=== PATIENT | female | born 1965 | race Caucasian/White ===

== ENCOUNTER 2019-03-29 05:00 | Inpatient (IN) ==
[2019-03-23 11:56] LABS: Appearance,Urine CLEAR; Bilirubin,Urine NEG (NEG); Color,Urine YELLOW; Culture Indicated,Urine NO; Glucose,Urine (UA) NEGATIVE (NEG); Ketones,Urine NEG (NEG); Leukocyte Esterase,Urine NEG /uL (NEG); Nitrate,Urine NEG (NEG); Protein,Urine NEG (NEG); Specific Gravity,Urine 1.019 (1.000-1.035); Urine Blood NEG mg/dL (<0.03); Urobilinogen,Urine NEG (NEG)
[2019-03-23 12:05] LABS: Basophils # (Auto) 0 K/mcL (0.0-0.3); Basophils % (Auto) 0.4 % (0.0-2.0); Eosinophils # (Auto) 0.1 K/mcL (0.0-0.7); Eosinophils % (Auto) 2.6 % (0.0-7.0); Granulocytes % (Auto) 56.4 % (38.0-78.0); Hematocrit 41.3 % (36.0-48.0); Hemoglobin 13.7 g/dL (12.0-15.0); Lymphocytes # (Auto) 1.6 K/mcL (1.5-4.8); Lymphocytes % (Auto) 31.8 % (15.5-49.0); Mean Cell Volume 91.5 fL (80.0-100.0); Mean Corpuscular HGB Conc 33.1 g/dL (31.0-36.0); Mean Platelet Volume 9.1 fL (7.4-10.4); Monocytes # (Auto) 0.4 K/mcL (0.1-0.9); Monocytes % (Auto) 8.8 % (1.0-12.0); Platelet Count 169 K/mcL (140-440); RBC 4.52 M/mcL (4.00-5.20); Red Cell Distribution Width 14.1 % (11.5-14.5)
[2019-03-23 12:20] LABS: Blood Urea Nitrogen 23 mg/dl (6-20); Calcium 8.9 mg/dl (8.6-10.4); Carbon Dioxide 26 mmol/L (22-30); Chloride 104 mmol/L (96-108); Glomerular Filtration Rate 82; Glucose 85 mg/dL (70-105); Potassium 4.6 mmol/L (3.3-5.1); Sodium 142 mmol/L (133-145)
[~2019-03-29 05:00] MED LIST: IPRATROPIUM/ALBUTEROL 3 ML AMPUL.NEB NEB PRN; SCOPOLAMINE 1 PATCH PATCH TOPICAL PRN
[2019-03-29] MEDS ORDERED: ceFAZolin 2 GM in DEXTROSE 5% IN WATER 50 ML IV SCH (06:00)
[2019-03-29] MEDS ORDERED: oxyCODONE 10 MG TAB.ER.12H PO SCH (06:00)
[2019-03-29] MEDS ORDERED: ACETAMINOPHEN 500 MG TABLET PO SCH (06:00)
[2019-03-29] MEDS ORDERED: PREGABALIN 75 MG CAPSULE PO SCH (06:00)
[2019-03-29] MEDS ORDERED: 0.9 % SODIUM CHLORIDE 9 ML, KETOROLAC 30 MG, ROPIVACAINE HCL/PF 49.5 ML, EPINEPHrine 0.... IJ SCH (06:00)
[2019-03-29] MEDS ORDERED: CELECOXIB 200 MG CAPSULE PO SCH (06:00)
[2019-03-29] MEDS ORDERED: MIDAZOLAM 5 MG/5 ML VIAL IV ONE (07:40)
[2019-03-29] MEDS ORDERED: TRANEXAMIC ACID 1,000 MG/10 ML VIAL IV ONE (07:40)
[2019-03-29] MEDS ORDERED: ONDANSETRON 4 MG/2 ML VIAL IV ONE (07:40)
[2019-03-29] MEDS ORDERED: ROPIVACAINE HCL/PF 20 ML VIAL IJ ONE (07:40)
[2019-03-29] MEDS ORDERED: HYDROmorphone 2 MG/ML VIAL IV ONE (07:40)
[2019-03-29] MEDS ORDERED: GLYCOPYRROLATE 0.2 MG/ML VIAL IV ONE (07:40)
[2019-03-29] MEDS ORDERED: LIDOCAINE HCL/PF 100 MG/5 ML SYRINGE IV ONE (07:40)
[2019-03-29] MEDS ORDERED: fentaNYL 100 MCG/2 ML VIAL IV ONE (07:40)
[2019-03-29] MEDS ORDERED: PROPOFOL 200 MG/20 ML VIAL IV ONE (07:40)
[2019-03-29] MEDS ORDERED: DEXAMETHASONE 10 MG/ML VIAL IV ONE (07:40)
[2019-03-29] MEDS ORDERED: GENTAMICIN SULFATE 800 MG/20 ML VIAL IR ONE (08:11)
[2019-03-29] MEDS ORDERED: PROMETHAZINE 25 MG/ML VIAL IV PRN (08:43)
[2019-03-29] MEDS ORDERED: ATROPINE SULFATE 0.4 MG/ML VIAL IV PRN (08:43)
[2019-03-29] MEDS ORDERED: ONDANSETRON 4 MG/2 ML VIAL IV PRN ×2 (08:43→09:37)
[2019-03-29] MEDS ORDERED: IPRATROPIUM/ALBUTEROL 3 ML AMPUL.NEB NEB PRN (08:43)
[2019-03-29] MEDS ORDERED: METOPROLOL TARTRATE 5 MG/5 ML VIAL IV PRN (08:43)
[2019-03-29] MEDS ORDERED: HYDROmorphone 2 MG/ML VIAL IV PRN (08:43)
[2019-03-29] MEDS ORDERED: MEPERIDINE 25 MG/ML SYRINGE IV PRN (08:43)
[2019-03-29] MEDS ORDERED: METHOCARBAMOL 1,000 MG/10 ML VIAL IV PRN (08:43)
[2019-03-29] MEDS ORDERED: NALOXONE HCL 0.4 MG/ML VIAL IV PRN (08:43)
[2019-03-29] MEDS ORDERED: diphenhydrAMINE 50 MG/ML VIAL IV PRN (08:43)
[2019-03-29] MEDS ORDERED: ePHEDrine 50 MG/ML AMPUL IV PRN (08:43)
[2019-03-29] MEDS ORDERED: FLUMAZENIL 0.1 MG/ML ML IV PRN (08:43)
[2019-03-29] MEDS ORDERED: LACTATED RINGERS 1,000 ML IV SCH (08:45)
[2019-03-29] MEDS ORDERED: MAGNESIUM HYDROXIDE 30 ML ORAL.SUSP PO PRN (09:37)
[2019-03-29] MEDS ORDERED: FLEETS ADULT ENEMA PR PRN (09:37)
[2019-03-29] MEDS ORDERED: BISACODYL 10 MG SUPP.RECT PR PRN (09:37)
[2019-03-29] MEDS ORDERED: ACETAMINOPHEN 325 MG TABLET PO PRN (09:37)
[2019-03-29] MEDS ORDERED: BENZOCAINE/MENTHOL 1 LOZENGE PO PRN (09:37)
[2019-03-29] MEDS ORDERED: POLYETHYLENE GLYCOL 3350 17 GM PACKET PO PRN (09:37)
[2019-03-29] MEDS ORDERED: TRANEXAMIC ACID 1,000 MG/10 ML VIAL IV SCH (09:37)
--- NOTE | 2019-03-29 09:37 | Brief Operative Note ---
Date of procedure: 03/29/19 Pre-op diagnosis: Right knee djd severe Post-op diagnosis: same Procedure: Right TKA with melissa robot Grafts/Implants: Yes Anesthesia: GETA Complications Description: 03/29/19 09:36 none Surgeon: Francis Ayala Customer Success Manager: Myron Luque Estimated blood loss (cc): 100 Tourniquet Time (Minutes): 68 Specimens Removed/Pathology: none sent Condition: stable Disposition: PACU
--- NOTE | 2019-03-29 10:15 | Operative Note ---
DATE OF OPERATION: 03/29/2019 PREOPERATIVE DIAGNOSIS: Right knee degenerative arthritis with severe varus malalignment and flexion contracture of 8 degrees. POSTOPERATIVE DIAGNOSIS: Right knee degenerative arthritis with severe varus malalignment and flexion of contracture of 8 degrees. PROCEDURE: Right robotic total knee arthroplasty. SURGEON: Francis Ayala MD YOUTUBER: Myron Luque PA-C. The PA's assistance was required for the safe and efficient completion of the entire case. This provider's expertise and technical skill were required throughout the case. The PA assisted with preoperative coordination, intraoperative retraction, wound closure, dressing and splint application, as well as postoperative documentation and care coordination. ANESTHESIA: General LMA anesthesia. COMPLICATIONS: None. TOTAL TOURNIQUET TIME: 68 minutes. IMPLANTS PLACED: Per nurse's note. They were all [place] components with a 10 mm poly deep dish with a 32 mm patellar button. DESCRIPTION OF PROCEDURE: The patient was brought to the operating room and put to sleep with general LMA anesthesia. Once asleep, the patient had the right knee sterilely prepped and draped in the usual sterile fashion. A timeout was performed confirming the operative site, and a midline incision was then made, a mid vastus approach performed and we identified severe arthritis with varus malalignment and contracture. Pins above and below the knee were placed for the arrays. We registered the center of hip rotation. Intra-articular pins were placed. We registered the medial and lateral malleoli, registered the pins and registered 30 points on the femur and the tibia. We then balanced the knee with varus valgus stresses at both 90 degrees and 15 degrees of flexion. Once we perfectly balanced the knee by adjusting the implant, alignment and soft tissue releases I then proceeded with using the robot. The robot was brought in and made the bony cuts as planned. We removed these bony fragments, removed the remnants of the meniscus, preserved the posterior cruciate ligament and removed osteophytes as well. We trialed the components. They were tapped into place. We first trialed the 9 where we still had 4 degrees of flexion contracture. We released soft tissues medially and that allowed us to gain full extension and we went up to a size 10 polyethylene. This balanced the knee very well and brought the knee back to 3 degrees of varus and 1 or 2 degrees of extension. This patient tolerated this well. We then implanted the above-mentioned implants; they were cemented into place. Excess cement removed. Posterior spurs were removed and then we placed a 10 mm polyethylene and a 32 mm patellar button was used to rematch her anatomy. We irrigated thoroughly and deflated the tourniquet at 68 minutes and then Stratafix sutures were used to close the capsule x2. The skin was closed with Stratafix and adhesive glue. The patient tolerated this well and a sterile bandage was applied. RBH:larisa Job ID: [id number] Doc ID: [id number] Francis Ayala MD
[2019-03-29] MEDS: fentaNYL 100 MCG/2 ML VIAL IV PRN ×2 (10:30→10:33)
--- NOTE | 2019-03-29 10:44 | XRay Report ---
CLINICAL INFORMATION: Post-Op Total Knee COMPARISON: None. FINDINGS: Total knee prostheses is anatomically aligned. No osseous abnormality. Periarticular gas and soft tissue are seen as expected. IMPRESSION: Negative Interpreted and Authenticated by: Domenico Smyth 03/29/19
[2019-03-29] MEDS: 0.45 % SODIUM CHLORIDE 1,000 ML IV SCH ×2 (10:56→20:46)
[2019-03-29] MEDS: HYDROmorphone 2 MG/ML VIAL IV PRN ×3 (11:14→19:46)
[2019-03-29] MEDS: KETOROLAC 15 MG/ML VIAL IV SCH ×2 (11:55→18:06)
[2019-03-29] MEDS: HYDROcodone/APAP 10/325MG TABLET PO PRN ×3 (12:21→20:42)
[2019-03-29] MEDS: 0.9 % SODIUM CHLORIDE 10 ML SYRINGE IV SCH ×2 (14:44→23:01)
[2019-03-29] MEDS: ceFAZolin 1 GM VIAL IV SCH (16:04)
[2019-03-29] MEDS: ASPIRIN 325 MG ENTERIC COATED TABLET PO SCH (20:43)
[2019-03-29] MEDS: DOCUSATE SODIUM 100 MG CAPSULE PO SCH (20:43)
[2019-03-29] MEDS ORDERED: SENNOSIDES 1 TABLET PO SCH (21:00)
[2019-03-29] MEDS ORDERED: TEMAZEPAM 15 MG CAPSULE PO PRN (21:00)
[2019-03-29] MEDS ORDERED: OMEPRAZOLE 20 MG CAPSULE PO SCH (21:00)
[2019-03-29] MEDS ORDERED: traZODone HCL 50 MG TABLET PO SCH (21:00)
[2019-03-30] MEDS: HYDROcodone/APAP 10/325MG TABLET PO PRN ×3 (00:35→09:40)
[2019-03-30] MEDS: ceFAZolin 1 GM VIAL IV SCH (00:44)
[2019-03-30] MEDS: KETOROLAC 15 MG/ML VIAL IV SCH ×2 (00:44→05:18)
[2019-03-30] MEDS: HYDROmorphone 2 MG/ML VIAL IV PRN (03:24)
[2019-03-30] MEDS: 0.9 % SODIUM CHLORIDE 10 ML SYRINGE IV SCH (05:49)
[2019-03-30] MEDS: 0.45 % SODIUM CHLORIDE 1,000 ML IV SCH (06:27)
--- NOTE | 2019-03-30 07:38 | Orthopedic Progress Note ---
Subjective Patient information: Note initiated : 03/30/19 at 7:37 am Service Date, if different from initiated Date: [] Patient: Noy Mgcuire 54 y/o F admitted on 03/29/19 for Right Robotic Total Knee Arthroplasty. Chief Complaint: [Pt is stable this morning on post operative day 1 without any significant concerns or complaints. Patients vital signs have remained stable. Patients dressing is dry and is grossly intact from a neurovascular and motor standpoint. Patients 10 point ROS is otherwise negative. ] Objective Vital signs: Vital Signs Temp Pulse Resp BP BP Pulse Ox 03/30/19 06:28 97.9 F 68 16 108/61 96 03/30/19 05:00 96 03/30/19 03:44 97.9 F 77 16 118/69 95 03/30/19 00:59 95 03/30/19 00:52 98.3 F 84 16 112/70 95 03/29/19 21:00 97 03/29/19 19:29 98 F 81 16 102/63 90 03/29/19 19:23 94 03/29/19 15:10 97.6 F 73 17 112/68 96 03/29/19 13:00 96 03/29/19 11:51 72 111/70 100 03/29/19 11:36 70 115/73 100 03/29/19 11:21 75 120/71 91 03/29/19 11:06 67 125/70 98 03/29/19 10:51 79 134/82 95 03/29/19 10:35 96.9 F L 74 14 145/89 100 03/29/19 10:20 97.5 F 75 13 147/78 100 03/29/19 10:05 97.3 F 91 H 15 116/93 98 03/29/19 10:00 85 15 139/79 100 03/29/19 09:55 76 11 L 135/77 100 03/29/19 09:50 97.5 F 76 10 L 136/70 95 Intake and Output 03/29/19 03/30/19 03/30/19 21:59 05:59 13:59 Intake Total 2583 Output Total 651 1100 Balance 1932 -1100 Intake: IV 983 Sodium Chloride 0.45% 1,000 ml 983 @ 100 mls/hr IV .Q10H ELADIO Rx#: [id number] Oral 1600 Output: Void Amount 650 1100 # of times incontinent of urine 1 Other: Meal Dinner Percent of Meal Consumed 100% Urine Appearance Clear Clear Urine Color Bright Yellow Bright Yellow Urine Odor Normal Weight 248 lb Intake & Output: Intake & Output 03/29/19 03/30/19 03/30/19 21:59 05:59 13:59 Intake Total 2583 Output Total 651 1100 Balance 1932 -1100 Weight 248 lb Intake: IV 983 Sodium Chloride 0.45% 1,000 ml 983 @ 100 mls/hr IV .Q10H ELADIO Rx#: [id number] Oral 1600 Output: Void Amount 650 1100 # of times incontinent of urine 1 Other: Meal Dinner Percent of Meal Consumed 100% Urine Appearance Clear Clear Urine Color Bright Yellow Bright Yellow Urine Odor Normal Incision: Yes healing Incision clean and dry: Yes Dressing: Yes clean, Yes dry Weight bearing status: full Neurological exam IM: Yes motor sensory intact, Yes neurovascular intact Extremities exam IM: Yes Foot pink and warm, Yes neurovascular intact - Labs CBC & BMP: 03/30/19 04:00 03/23/19 09:47 Labs: 03/30/19 03/23/19 04:00 09:47 Hgb 13.7 Hct 33.2 L 41.3 Assessment and Plan (1) Hx of total knee arthroplasty The patient has been educated regarding dressing care, Physical Therapy recommendations, home exercises, restrictions, and follow up appointments. The patient has had all necessary DME prescribed. The patient has remained relatively stable during their hospital course. Leave Dermabond patch intact until followup Status: Acute
--- NOTE | 2019-03-30 07:41 | Discharge Summary ---
Ortho Discharge - TKA - Patient Instructions Diet: Regular Diet Activity: activity as tolerated, weight bearing as tolerated Total Knee Protocol: For Total Knee: Start ROM ANNIA with stationary bike or rocking chair. Work on gaining full extension of knee. Posterior dislocation precautions provided. Hip abductor strengthening and gait training instructions provided. Apply Cryocuff as instructed. Dressing Care: May shower in 2 days - Problem Maintenance (1) Hx of total knee arthroplasty Status: Acute - Follow Up Plan Follow Up Appointments: Myron Luque PA-C [Physician Photostat Operator] - 04/20/19 10:10 am Disposition: Home, Self-Care Prognosis: Good Rehab Potential: Good I certify that the patient requires SNF services: No Overall status at discharge: patient is progressing back to baseline - Orders For Discharge Prescriptions: Aspirin [Ecotrin] 325 mg PO BID #60 tab.ec Docusate Sodium [Colace] 100 mg PO BID #60 capsule HYDROcodone/APAP 10/325MG [[place] 10-325Mg] 1 - 2 tab PO Q4HP PRN #75 tablet PRN Reason: Pain Level 3-6
[2019-03-30] MEDS ORDERED: FERROUS SULFATE 325 MG TABLET PO SCH (08:00)
[2019-03-30] MEDS: DOCUSATE SODIUM 100 MG CAPSULE PO SCH (08:03)
[2019-03-30] MEDS: ASPIRIN 325 MG ENTERIC COATED TABLET PO SCH (08:03)
[2019-03-30] MEDS ORDERED: VITAMIN D3 1,000 UNIT TABLET PO SCH (09:00)
[2019-03-30] MEDS ORDERED: FLUoxetine HCL 20 MG CAPSULE PO SCH (09:00)
[2019-03-30] MEDS ORDERED: ASCORBIC ACID 500 MG TABLET PO SCH (09:00)
[2019-03-30] MEDS ORDERED: MELOXICAM 7.5 MG TABLET PO SCH (09:00)
[2019-03-30] MEDS ORDERED: lamoTRIgine 25 MG TABLET PO SCH (09:00)
== END 2019-03-30 10:30 | disposition home or self-care (01) | DRG 470 ==
LOC: MEDSUR 05:00
PROVIDERS: ADMIT Orthopaedic Surgery; ATTEND Orthopaedic Surgery

== ENCOUNTER 2019-09-06 04:50 | Inpatient (IN) ==
[2019-08-31 13:43] LABS: Appearance,Urine CLEAR; Bilirubin,Urine NEG (NEG); Color,Urine YELLOW; Culture Indicated,Urine NO; Glucose,Urine (UA) NEGATIVE (NEG); Ketones,Urine NEG (NEG); Leukocyte Esterase,Urine NEG /uL (NEG); Nitrate,Urine NEG (NEG); Protein,Urine NEG (NEG); Specific Gravity,Urine 1.011 (1.000-1.035); Urine Blood NEG mg/dL (<0.03); Urobilinogen,Urine NEG (NEG)
[2019-08-31 14:59] LABS: Basophils # (Auto) 0 K/mcL (0.0-0.3); Basophils % (Auto) 0.4 % (0.0-2.0); Eosinophils # (Auto) 0.1 K/mcL (0.0-0.7); Eosinophils % (Auto) 1.3 % (0.0-7.0); Granulocytes % (Auto) 59.9 % (38.0-78.0); Hematocrit 43.1 % (36.0-48.0); Hemoglobin 14.2 g/dL (12.0-15.0); Lymphocytes # (Auto) 2.1 K/mcL (1.5-4.8); Lymphocytes % (Auto) 31.8 % (15.5-49.0); Mean Cell Volume 89.1 fL (80.0-100.0); Mean Platelet Volume 8.6 fL (7.4-10.4); Monocytes # (Auto) 0.4 K/mcL (0.1-0.9); Monocytes % (Auto) 6.6 % (1.0-12.0); Platelet Count 199 K/mcL (140-440); RBC 4.84 M/mcL (4.00-5.20); Red Cell Distribution Width 13.4 % (11.5-14.5); WBC 6.4 K/mcL (4.5-11.0)
[2019-08-31 15:56] LABS: Blood Urea Nitrogen 12 mg/dl (6-20); Calcium 9.8 mg/dl (8.6-10.4); Carbon Dioxide 25 mmol/L (22-30); Chloride 102 mmol/L (96-108); Glomerular Filtration Rate 82; Glucose 92 mg/dL (70-105)
[2019-09-06] MEDS ORDERED: IPRATROPIUM/ALBUTEROL 3 ML AMPUL.NEB NEB PRN ×2 (05:30→08:44)
[2019-09-06] MEDS ORDERED: SCOPOLAMINE 1 PATCH PATCH TOPICAL PRN (05:30)
[2019-09-06] MEDS ORDERED: CELECOXIB 200 MG CAPSULE PO SCH (06:00)
[2019-09-06] MEDS ORDERED: 0.9 % SODIUM CHLORIDE 9 ML, KETOROLAC 30 MG, ROPIVACAINE HCL/PF 49.5 ML, EPINEPHrine 0.... IJ SCH (06:00)
[2019-09-06] MEDS ORDERED: PREGABALIN 75 MG CAPSULE PO SCH (06:00)
[2019-09-06] MEDS ORDERED: ceFAZolin 2 GM in DEXTROSE 5% IN WATER 50 ML IV SCH (06:00)
[2019-09-06] MEDS ORDERED: oxyCODONE 10 MG TAB.ER.12H PO SCH (06:00)
[2019-09-06] MEDS ORDERED: ACETAMINOPHEN 500 MG TABLET PO SCH (06:00)
[2019-09-06] MEDS ORDERED: GENTAMICIN SULFATE 800 MG/20 ML VIAL IR ONE (07:01)
[2019-09-06] MEDS ORDERED: fentaNYL 100 MCG/2 ML VIAL IV ONE (07:35)
[2019-09-06] MEDS ORDERED: ROPIVACAINE HCL/PF 20 ML VIAL IJ ONE (07:35)
[2019-09-06] MEDS ORDERED: TRANEXAMIC ACID 1,000 MG/10 ML VIAL IV ONE (07:35)
[2019-09-06] MEDS ORDERED: LIDOCAINE HCL/PF 100 MG/5 ML SYRINGE IV ONE (07:35)
[2019-09-06] MEDS ORDERED: GLYCOPYRROLATE 0.2 MG/ML VIAL IV ONE (07:35)
[2019-09-06] MEDS ORDERED: ONDANSETRON 4 MG/2 ML VIAL IV ONE (07:35)
[2019-09-06] MEDS ORDERED: DEXAMETHASONE 10 MG/ML VIAL IV ONE (07:35)
[2019-09-06] MEDS ORDERED: PROPOFOL 200 MG/20 ML VIAL IV ONE (07:35)
[2019-09-06] MEDS ORDERED: KETAMINE 100 MG/ML ML IV ONE (07:35)
[2019-09-06] MEDS ORDERED: METHOCARBAMOL 1,000 MG/10 ML VIAL IV PRN (08:44)
[2019-09-06] MEDS ORDERED: KETOROLAC 15 MG/ML VIAL IV PRN (08:44)
[2019-09-06] MEDS ORDERED: METOPROLOL TARTRATE 5 MG/5 ML VIAL IV PRN (08:44)
[2019-09-06] MEDS ORDERED: PROMETHAZINE 25 MG/ML VIAL IV PRN (08:44)
[2019-09-06] MEDS ORDERED: FLUMAZENIL 0.1 MG/ML ML IV PRN (08:44)
[2019-09-06] MEDS ORDERED: diphenhydrAMINE 50 MG/ML VIAL IV PRN (08:44)
[2019-09-06] MEDS ORDERED: ePHEDrine 50 MG/ML AMPUL IV PRN (08:44)
[2019-09-06] MEDS ORDERED: ATROPINE SULFATE 0.4 MG/ML VIAL IV PRN (08:44)
[2019-09-06] MEDS ORDERED: ONDANSETRON 4 MG/2 ML VIAL IV PRN ×2 (08:44→09:14)
[2019-09-06] MEDS ORDERED: NALOXONE HCL 0.4 MG/ML VIAL IV PRN (08:44)
[2019-09-06] MEDS ORDERED: MEPERIDINE 25 MG/ML SYRINGE IV PRN (08:44)
[2019-09-06] MEDS ORDERED: fentaNYL 100 MCG/2 ML VIAL IV PRN (08:44)
[2019-09-06] MEDS ORDERED: LACTATED RINGERS 1,000 ML IV SCH (08:45)
[2019-09-06] MEDS ORDERED: POLYETHYLENE GLYCOL 3350 17 GM PACKET PO PRN (09:14)
[2019-09-06] MEDS ORDERED: ACETAMINOPHEN 325 MG TABLET PO PRN (09:14)
[2019-09-06] MEDS ORDERED: FLEETS ADULT ENEMA PR PRN (09:14)
[2019-09-06] MEDS ORDERED: HYDROmorphone 2 MG/ML VIAL IV PRN (09:14)
[2019-09-06] MEDS ORDERED: BISACODYL 10 MG SUPP.RECT PR PRN (09:14)
[2019-09-06] MEDS ORDERED: BENZOCAINE/MENTHOL 1 LOZENGE PO PRN (09:14)
[2019-09-06] MEDS ORDERED: MAGNESIUM HYDROXIDE 30 ML ORAL.SUSP PO PRN (09:14)
[2019-09-06] MEDS ORDERED: TEMAZEPAM 15 MG CAPSULE PO PRN (09:14)
--- NOTE | 2019-09-06 09:14 | Brief Operative Note ---
Date of procedure: 09/06/19 Pre-op diagnosis: Left knee djd Post-op diagnosis: same Procedure: Left TKA with melissa robot Grafts/Implants: Yes Anesthesia: GETA Surgeon: Francis Ayala Engineering And Operations Director: Myron Luque Estimated blood loss (cc): 50 Tourniquet Time (Minutes): 50 Specimens Removed/Pathology: none sent Condition: stable Disposition: PACU
[2019-09-06] MEDS: TRANEXAMIC ACID 1,000 MG/10 ML VIAL IV ONE ×2 (09:40→11:24)
--- NOTE | 2019-09-06 09:41 | Operative Note ---
DATE OF OPERATION: 09/06/2019 PREOPERATIVE DIAGNOSIS: Left knee degenerative arthritis. POSTOPERATIVE DIAGNOSIS: Left knee degenerative arthritis. PROCEDURE: 1. Left robotic total knee arthroplasty. 2. Hardware removal of the tibial baseplate ACL screw. 3. Manipulation of the right knee. SURGEON: Francis Ayala M.D. HURL SHAKER: Myron Luque PA-C. The PA's assistance was required for the safe and efficient completion of the entire case. This provider's expertise and technical skill were required throughout the case. The PA assisted with preoperative coordination, intraoperative retraction, wound closure, dressing and splint application, as well as postoperative documentation and care coordination. ANESTHESIA: General LMA anesthesia. COMPLICATIONS: None. DESCRIPTION OF PROCEDURE: The patient was brought to the operating room and put to sleep with general LMA anesthesia. Once asleep, the patient had the left leg sterilely prepped and draped in the usual sterile fashion. Once this was done, a timeout was performed confirming the operative site by initials, consent form, and x-rays. Once done, we then placed Ioban over the skin, exsanguinated the leg, and inflated the tourniquet to 250 pounds of pressure. We were then able to make a midline incision, midvastus approach performed. We registered the center of hip rotation and thirty points of the femur and tibia. Intraarticular pins were registered, as well as medial and lateral malleoli. Once all these points were registered, we balanced the knee so the leg would track perfectly. Once this was done with the robot, we were able to perform the case. We proceeded with cutting the tibia first, removing a screw. We removed a tibial ACL screw which was in the way of the surgery. This was removed without difficulty. Once done, we proceeded with the tibial cut. The tibial cut was made and the bony fragment removed. We then performed the bony cuts on the femur. These were made. We then performed spur removal posteriorly. Osteophytes and remnants of the meniscus removed. We then trialed the component for the femur and the tibia. The patella was then resurfaced measuring 24 mm. This was cut to 14 mm thickness and then placed a 35 mm patellar button. This all created the anatomy very well. The patella tracked very well and we then cemented into place a size 6 tibial baseplate, size 5 femoral component, and 9 mm poly insert with a deep dish. There was no complication. The patient tolerated this well. We resurfaced the patella with a 35 mm oval patella. Once everything was confirmed to match and fit very nicely, we let the cement dry. We deflated the tourniquet at approximately 50 minutes. We controlled the bleeding with the Bovie. Once done, we then placed 4-0 nylon sutures in places of the incisions for the pins. We were able to close the skin with #1 Stratafix x2 to close the capsule and closed the fascial layer and the skin with Stratafix. Sterile bandage was applied. We were able to close the skin with adhesive closure. The patient awoke without difficulty. The right knee was also manipulated under anesthesia to help her and assist her in gaining motion. RBH:jo Job ID: [id number] Doc ID: [id number] Francis Ayala MD
--- NOTE | 2019-09-06 10:21 | XRay Report ---
CLINICAL INFORMATION: Post Surgical COMPARISON: None. FINDINGS: Total knee prostheses is anatomically aligned. No osseous abnormality. Periarticular soft tissue swelling seen as expected. IMPRESSION: Negative Interpreted and Authenticated by: Domenico Smyth 09/06/19
[2019-09-06] MEDS: LACTATED RINGERS 1,000 ML IV SCH ×2 (11:23→22:36)
[2019-09-06] MEDS: KETOROLAC 15 MG/ML VIAL IV PRN ×2 (11:24→23:41)
[2019-09-06] MEDS: HYDROcodone/APAP 10/325MG TABLET PO PRN ×3 (12:54→20:02)
[2019-09-06] MEDS: 0.9 % SODIUM CHLORIDE 10 ML SYRINGE IV SCH ×2 (15:23→21:18)
[2019-09-06] MEDS: ceFAZolin 1 GM VIAL IV SCH ×2 (15:23→23:46)
[2019-09-06] MEDS: DOCUSATE SODIUM 100 MG CAPSULE PO SCH (20:01)
[2019-09-06] MEDS: ASPIRIN 325 MG ENTERIC COATED TABLET PO SCH (20:01)
[2019-09-06] MEDS ORDERED: OMEPRAZOLE 20 MG CAPSULE PO SCH (21:00)
[2019-09-06] MEDS ORDERED: traZODone HCL 50 MG TABLET PO SCH (21:00)
[2019-09-06] MEDS ORDERED: SENNOSIDES 1 TABLET PO SCH (21:00)
[2019-09-07] MEDS: HYDROcodone/APAP 10/325MG TABLET PO PRN ×4 (00:03→12:51)
[2019-09-07] MEDS: LACTATED RINGERS 1,000 ML IV SCH (05:04)
[2019-09-07] MEDS: 0.9 % SODIUM CHLORIDE 10 ML SYRINGE IV SCH (05:28)
--- NOTE | 2019-09-07 07:46 | Orthopedic Progress Note ---
Subjective Patient information: Note initiated : 09/07/19 at 7:46 am Service Date, if different from initiated Date: [] Patient: Noy Mcguire 54 y/o F admitted on 09/06/19 for Left Total Knee Arthroplasty [place]. Chief Complaint: [Pt is stable this morning on post operative day 1 without any significant concerns or complaints. Patients vital signs have remained stable. Patients dressing is dry and is grossly intact from a neurovascular and motor standpoint. Patients 10 point ROS is otherwise negative. ] Objective Vital signs: Vital Signs Temp Pulse Resp BP Pulse Ox 09/07/19 04:38 98.2 F 75 18 117/73 96 09/07/19 01:00 98 09/07/19 00:00 98.1 F 20 113/67 95 09/06/19 23:00 98 09/06/19 21:00 96 09/06/19 19:26 97.5 F 77 12 103/64 91 09/06/19 17:00 92 09/06/19 16:00 98.2 F 77 18 131/69 94 09/06/19 15:00 93 09/06/19 13:00 94 09/06/19 11:45 98.0 F 74 18 113/56 98 09/06/19 11:15 72 16 119/70 94 09/06/19 11:00 67 16 123/80 97 09/06/19 10:45 69 16 116/71 93 09/06/19 10:30 97.4 F 72 16 134/77 98 09/06/19 10:14 81 20 143/80 99 09/06/19 10:04 76 16 122/73 100 09/06/19 09:54 80 15 127/61 99 09/06/19 09:49 75 15 127/54 99 09/06/19 09:44 108 H 15 126/73 99 09/06/19 09:39 97.9 F 100 H 16 116/91 100 Intake and Output 09/06/19 09/07/19 09/07/19 21:59 05:59 13:59 Intake Total 3640 400 Output Total 1050 1200 Balance 2590 -800 Intake: IV 1000 Lactated Ringers 1,000 ml @ 100 1000 mls/hr IV .Q10H ELADIO Rx#: [id number] Oral 2640 400 Output: Void Amount 1050 1200 Other: Meal Dinner Percent of Meal Consumed 100% Feeding Ability Assist with Tray Set Up Urine Appearance Clear Clear Urine Color Bright Yellow Bright Yellow Urine Odor Normal Normal Weight 260 lb 14.4 oz Intake & Output: Intake & Output 09/06/19 09/07/19 09/07/19 21:59 05:59 13:59 Intake Total 3640 400 Output Total 1050 1200 Balance 2590 -800 Weight 260 lb 14.4 oz Intake: IV 1000 Lactated Ringers 1,000 ml @ 100 1000 mls/hr IV .Q10H ELADIO Rx#: [id number] Oral 2640 400 Output: Void Amount 1050 1200 Other: Meal Dinner Percent of Meal Consumed 100% Feeding Ability Assist with Tray Set Up Urine Appearance Clear Clear Urine Color Bright Yellow Bright Yellow Urine Odor Normal Normal Incision: Yes healing Incision clean and dry: Yes Dressing: Yes clean Weight bearing status: full Neurological exam IM: Yes motor sensory intact, Yes neurovascular intact Extremities exam IM: Yes Foot pink and warm, Yes neurovascular intact - Labs CBC & BMP: 09/07/19 05:25 08/31/19 11:27 Labs: 09/07/19 08/31/19 05:25 11:27 Hgb 14.2 Hct 33.6 L 43.1 Assessment and Plan (1) Hx of total knee arthroplasty The patient has been educated regarding dressing care, Physical Therapy recommendations, home exercises, restrictions, and follow up appointments. The patient has had all necessary DME prescribed. The patient has remained re latively stable during their hospital course. Status: Acute
--- NOTE | 2019-09-07 07:49 | Discharge Summary ---
Ortho Discharge - TKA - Patient Instructions Diet: Regular Diet Activity: activity as tolerated, weight bearing as tolerated Total Knee Protocol: For Total Knee: Start ROM ANNIA with stationary bike or rocking chair. Work on gaining full extension of knee. Posterior dislocation precautions provided. Hip abductor strengthening and gait training instructions provided. Apply Cryocuff as instructed. Dressing Care: May shower in 2 days - Problem Maintenance (1) Hx of total knee arthroplasty Status: Acute - Follow Up Plan Follow Up Appointments: Myron Luque PA-C [Physician Services Tech] - 09/21/19 9:20 am Disposition: Home, Self-Care Prognosis: Good Rehab Potential: Good I certify that the patient requires SNF services: No Overall status at discharge: patient is progressing back to baseline - Orders For Discharge Prescriptions: Docusate Sodium [Colace] 100 mg PO BID #60 cap Transmission Status: Pending to [address] Aspirin [Ecotrin] 325 mg PO BID #60 tab.ec Transmission Status: Pending to [facility] [address] HYDROcodone/APAP 10/325MG [[place] 10-325Mg] 1 - 2 tab PO Q4HP PRN #75 tab PRN Reason: Per Pain Protocol Prescription Printed
[2019-09-07] MEDS: DOCUSATE SODIUM 100 MG CAPSULE PO SCH (08:53)
[2019-09-07] MEDS: ASPIRIN 325 MG ENTERIC COATED TABLET PO SCH (08:53)
[2019-09-07] MEDS ORDERED: FLUoxetine HCL 20 MG CAPSULE PO SCH (09:00)
[2019-09-07] MEDS ORDERED: ASCORBIC ACID 500 MG TABLET PO SCH (09:00)
[2019-09-07] MEDS ORDERED: lamoTRIgine 25 MG TABLET PO SCH (09:00)
[2019-09-07] MEDS ORDERED: VITAMIN D3 5,000 UNIT CAPSULE PO SCH (09:00)
[2019-09-07] MEDS: KETOROLAC 15 MG/ML VIAL IV PRN (09:03)
== END 2019-09-07 14:00 | disposition home or self-care (01) | DRG 470 ==
LOC: MEDSUR 04:50
PROVIDERS: ADMIT Orthopaedic Surgery; ATTEND Orthopaedic Surgery